=== PATIENT | female | born 1945 | race Hispanic/Latino ===

== ENCOUNTER 2018-09-27 11:21 | Emergency (ER) | payer OTHER, MEDICARE ==
[2018-09-27] MEDS ORDERED: MORPHINE SULFATE 8 MG/ML VIAL ONE (12:17)
[2018-09-27] MEDS ORDERED: ONDANSETRON ODT 4 MG TAB ONE (12:17)
== END 2018-09-27 13:25 | disposition home or self-care (01) ==
LOC: EDH 11:21
DX: S83.92XA Sprain of unspecified site of left knee, initial encounter (principal); E78.5 Hyperlipidemia, unspecified; I10 Essential (primary) hypertension; E07.9 Disorder of thyroid, unspecified; Z87.891 Personal history of nicotine dependence; Z79.899 Other long term (current) drug therapy; W18.39XA Other fall on same level, initial encounter; Y93.01 Activity, walking, marching and hiking; Y92.89 Other specified places as the place of occurrence of the external cause; Y99.8 Other external cause status
CPT/HCPCS: 73562; 96372; 99284; J2270